=== PATIENT | male | born 1990 | race African-American/Black ===

== ENCOUNTER 2021-04-20 00:52 | Emergency (ER) | payer MEDICAID ==
[~2021-04-20] VITALS: Ht 188 cm; Wt 124.1 kg
[2021-04-20 00:56] VITALS: BP 145/97
--- NOTE | 2021-04-20 03:00 | NUR ---
PT CALLED FOR ROOM. PT NOT IN LOBBY
--- NOTE | 2021-04-20 03:29 | NUR ---
PT CALLED FOR ROOM. PT NOT IN LOBBY
--- NOTE | 2021-04-20 03:36 | NUR ---
PT WALKED BACK TO ROOM
[2021-04-20] MEDS ORDERED: BUPIVACAINE 0.25% ONE ×2 (04:03→04:10)
[2021-04-20] MEDS ORDERED: LIDOCAINE-MPF 1%, 5ML ONE ×2 (04:04→04:10)
[2021-04-20] MEDS ORDERED: IBUPROFEN 600 MG TABLET ONE (04:10)
[2021-04-20] MEDS ORDERED: IBUPROFEN 600 MG TABLET PO ONE (04:30)
[2021-04-20] MEDS ORDERED: LIDOCAINE 1%, 2ML INFIL ONE (04:30)
[2021-04-20] MEDS ORDERED: BUPIVACAINE 0.25% INFIL ONE (04:30)
== END 2021-04-20 04:33 | disposition home or self-care (01) ==
LOC: ED 04:27
DX: K02.9 Dental caries, unspecified (principal); K08.89 Other specified disorders of teeth and supporting structures
CPT/HCPCS: 64400; 99284